=== PATIENT | female | born 1950 | race Caucasian/White ===

== ENCOUNTER 2016-08-07 10:21 | Outpatient (CLI) | payer OTHER ==
[~2016-08-07 10:21] MED LIST: BENAZEPRIL PO; METFORMIN PO; SYNTHROID PO
== END 2016-08-07 18:55 | disposition home or self-care (01) ==
LOC: SMA 10:21
PROVIDERS: ATTEND Family Medicine
DX: Z12.31 Encounter for screening mammogram for malignant neoplasm of breast (principal)
CPT/HCPCS: 77067; G0202